=== PATIENT | female | born 1985 | race American Indian/Alaskan Native ===

== ENCOUNTER 2018-05-22 07:44 | Day surgery (SDC) | payer MEDICAID ==
[~2018-05-22 07:44] MED LIST: ANCEF/STERILE WATER 2 GM/20 ML IV NR; LACTATED RINGERS 1,000 ML IV SCH; VERSED IV NR
[2018-05-22] MEDS ORDERED: ZOFRAN IV PRN (08:10)
--- NOTE | 2018-05-22 08:39 | Anesthesia Consultation ---
Anesthesia Consult and Med Hx Date of service: 05/22/18 - Airway Anesthetic Teeth Evaluation: Good ROM Head & Neck: Adequate Mental/Hyoid Distance: Adequate Mallampati Class: Class I Intubation Access Assessment: Probably Good - Pulmonary Exam CTA: Yes - Cardiac Exam Cardiac Exam: RRR - Pre-Operative Health Status ASA Pre-Surgery Classification: ASA1 Proposed Anesthetic Plan: General - Pulmonary Hx Smoking: No Hx Sleep Apnea: No (SAYRA PRE SCREEN NEGATIVE) - Cardiovascular System Hx Hypertension: No Hx Cardia Arrhythmia: No - Central Nervous System Hx Neuromuscular Disorder: No - Gastrointestinal Hx Gastroesophageal Reflux Disease: No - Endocrine Hx Renal Disease: No Hx Liver Disease: No Hx Non-Insulin Dependent Diabetes: No Hx Thyroid Disease: No - Hematic Hx Sickle Cell Disease: No - Other Systems Hx Cancer: No Hx Obesity: No - Additional Comments Anesthesia Medical History Comments: No GAC, No FHAC
[2018-05-22] MEDS ORDERED: DIPRIVAN 10 MG/ML IV ONE (09:00)
[2018-05-22] MEDS ORDERED: DECADRON ONE (09:00)
[2018-05-22] MEDS ORDERED: ZOFRAN ONE (09:00)
[2018-05-22] MEDS ORDERED: XYLOCAINE MPF 2% ONE (09:00)
[2018-05-22] MEDS ORDERED: ZEMURON IV ONE (09:02)
[2018-05-22] MEDS ORDERED: DILAUDID ONE (09:03)
[2018-05-22] MEDS ORDERED: MARCAINE 0.5% INFILTRATI ONE ×2 (09:03→10:32)
[2018-05-22] MEDS ORDERED: XYLOCAINE 1% 20 mL ONE (09:03)
[2018-05-22] MEDS ORDERED: XYLOCAINE 1% 20 mL INFILTRATI ONE (10:32)
[2018-05-22] MEDS ORDERED: NACL 0.9% IR ONE (10:34)
--- NOTE | 2018-05-22 10:51 | Short Stay Summary ---
Short Stay Documentation Date of service: 05/22/18 - History Principal diagnosis: back cyst H&P: obtained from office - Allergies and Medications Current Medications: Allergies No Known Allergies Allergy (Verified 05/17/18 14:01) Home Medications Medication Instructions Recorded Confirmed Last Taken Type Ibuprofen 800 mg PO PRN PRN 05/17/18 05/22/18 05/17/18 History Active Medications Cefazolin Sodium (Ancef/Sterile Water 2 Gm/20 Ml) 2 gm IV PREOP NR Stop: 05/22/18 23:00 Hydromorphone HCl (Dilaudid) 0.5 mg IV Q10MIN PRN PRN Reason: Pain , Severe (7-10) Stop: 05/22/18 20:00 Lactated Ringer's (Lactated Ringers) 1,000 mls @ 100 mls/hr IV DIRECT GISELLA Midazolam HCl (Versed) 2 mg IV PREOP NR Stop: 05/22/18 21:59 Ondansetron HCl (Zofran) 4 mg IV ONCE PRN PRN Reason: Nausea And Vomiting Stop: 05/22/18 20:00 - Brief post op/procedure progress note Date of procedure: 05/22/18 Pre-op diagnosis: back cyst Post-op diagnosis: other (infected cyst of back) Procedure: excision of back cyst, drainage of abscess Anesthesia: GETA, local Findings: large amount in cavity containing cyst. 2.5 cm cyst of back Surgeon: TEENA GONZALES Estimated blood loss: minimal Pathology: list (1. abscess cultures, 2. back cyst) Specimen disposition: to lab Condition: stable - Hospital course Hospital course: Pt observed in PACU and discharged to home in stable condition once criteria met - Disposition Condition at discharge: Good Disposition: DC-01 TO HOME OR SELFCARE Short Stay Discharge Plan Activity: no restrictions Diet: regular Wound: other (see printed discharge instructions) Follow up with: VIANEY ORTIZ MD [Primary Care Provider] - 7 Days TEENA GONZALES DO [Staff Physician] - 3 Days Prescriptions: Ciprofloxacin HCl [Ciprofloxacin TAB] 500 mg PO BID 14 Days #28 tablet oxyCODONE /ACETAMINOPHEN [Percocet 5/325] 1 tab PO Q4HR PRN #30 tab PRN Reason: Pain , Severe (7-10)
[2018-05-22] MEDS: DILAUDID IV PRN ×3 (11:05→11:35)
[2018-05-22] MEDS ORDERED: TORADOL IV PRN (11:39)
[2018-05-22] MEDS ORDERED: PERCOCET 5/325 PO PRN (11:43)
[2018-05-22 13:02] VITALS: BP 121/78
--- NOTE | 2018-05-22 13:49 | Operative Report ---
Operative Report Operative Report: Date of procedure: 05/22/18 Pre-op diagnosis: back cyst Post-op diagnosis: other (infected cyst of back) Procedure: excision of back cyst, drainage of abscess Anesthesia: GETA, local Findings: large amount in cavity containing cyst. 2.5 cm cyst of back Surgeon: TEENA GONZALES Estimated blood loss: minimal Pathology: list (1. abscess cultures, 2. back cyst) Specimen disposition: to lab Condition: stable HPI and indication: 32 yo F with hx of infected cysts presented to office with c/o cyst on back. At that time it was not bothersome and patient elected to hold off on surgery. Over the last week the area has become more swollen and tender. Therefore she was scheduled for cyst excision. All risks, benefits, and alternatives to surgery discussed with her and consent obtained. Procedure in detail: The patient was identified in the preoperative area and taken back to the operating room. She was intubated on the stretcher and then placed in prone position of the operating room table. All bony prominences were padded appr opriately. The back was prepped and draped in the usual sterile fashion and time out performed. The skin was anesthetized with local anesthetic. An elliptical incision was made in the skin overlying the cyst using a 15 blade. Dissection was carried down through the skin and subcutaneous tissue using electrocautery. The cyst was encountered and circumfrentially dissected free from surrounding tissue using a combination of electrocautery and blunt dissection with hemostat. During the dissection an abscess cavity was encountered and the pus cultures. Approximately 20 cc of pus was evacuated from the cavity. Once the cyst was circumfrentially dissected and excised, it was passed off the table as a specimen. The cyst measured 2.5 cm. The abscess cavity was irrigated and fibrinous exudate was evacuated. The wound was copiously irrigated with saline and hemostasis achieved using cautery and pressure. The edges of the wound were approximated with 2-0 nylon suture and the middle of the wound was left open. A saline moistened gauze was packed into the wound bed. This was covered with dry gauze and medipore tape. At the end of the case, all sponge, sharp, and instrument counts were correct x 2. The patient tolerated the procedure well. She was placed on the stretcher, extubated, and taken to PACU in stable condition.
--- NOTE | 2018-05-22 13:53 | Anesthesia Day of Surgery ---
Anesthesia Day of Surgery - Day of Surgery Patient Examined: Yes Patient H&P Reviewed: Yes Patient is NPO: Yes
--- NOTE | 2018-05-22 13:54 | Anesthesia Consultation ---
Anesthesia Consult and Med Hx Date of service: 05/22/18 - Airway Anesthetic Teeth Evaluation: Good ROM Head & Neck: Adequate Mental/Hyoid Distance: Adequate Mallampati Class: Class I Intubation Access Assessment: Good - Pulmonary Exam CTA: Yes - Cardiac Exam Cardiac Exam: RRR - Pre-Operative Health Status ASA Pre-Surgery Classification: ASA3 Proposed Anesthetic Plan: General - Pulmonary Hx Smoking: No Hx Sleep Apnea: No (SAYRA PRE SCREEN NEGATIVE) - Cardiovascular System Hx Hypertension: No Hx Cardia Arrhythmia: No - Central Nervous System Hx Neuromuscular Disorder: No - Gastrointestinal Hx Gastroesophageal Reflux Disease: No - Endocrine Hx Renal Disease: No Hx Liver Disease: No Hx Non-Insulin Dependent Diabetes: No Hx Thyroid Disease: No - Hematic Hx Sickle Cell Disease: No - Other Systems Hx Cancer: No Hx Obesity: No - Additional Comments Anesthesia Medical History Comments: No GAC, No FHAC
== END 2018-05-22 12:55 | disposition home or self-care (01) ==
LOC: OR 07:44
PROVIDERS: ATTEND Surgery
DX: L72.8 Other follicular cysts of the skin and subcutaneous tissue (principal); Z79.899 Other long term (current) drug therapy; Z98.890 Other specified postprocedural states
CPT/HCPCS: 11403; 36415; 84703; 87075; 87116; 88304; J0690; J1100; J1170; J1885; J2250; J2405; J2704; J7120

== ENCOUNTER 2018-06-10 10:12 | Outpatient (CLI) | payer MEDICAID | END 2018-06-10 10:13 | disposition home or self-care (01) | LOC: WOUND 10:12 | CPT/HCPCS: 11042; G0463; 99205 ==